=== PATIENT | female | born 1955 | race Caucasian/White ===

== ENCOUNTER → 2016-12-25 | Outpatient (CLI) | payer BC, OTHER | LOC: HYPER 07:04 | DX: L97.821 Non-pressure chronic ulcer of other part of left lower leg limited to breakdown of skin (principal); L03.116 Cellulitis of left lower limb; D64.9 Anemia, unspecified; I89.0 Lymphedema, not elsewhere classified; M32.9 Systemic lupus erythematosus, unspecified; E66.01 Morbid (severe) obesity due to excess calories; R60.1 Generalized edema; I10 Essential (primary) hypertension ==

== ENCOUNTER → 2017-01-17 | Outpatient (CLI) | payer BC, OTHER | LOC: HYPER 07:06 | DX: L03.116 Cellulitis of left lower limb (principal); I89.0 Lymphedema, not elsewhere classified; E66.01 Morbid (severe) obesity due to excess calories; R60.1 Generalized edema; I10 Essential (primary) hypertension ==